=== PATIENT | male | born 1945 | race Caucasian/White ===

== ENCOUNTER → 2017-07-05 | Outpatient (CLI) | payer MEDICARE, BC ==
[~2017-07-05] MED LIST: AMBIEN; AMLODIPINE BESI25 GM; ASPI81CH; BUPR150ER; DHEA; ESCI20; FISH1000; FLUV80CR; LAMO100; LEVSOD50; Lisinopril2.5 MG; OLAN2.5; OLAN7.5; PRAZ2; PROP10; VALA500; ZOLP12.5
[2017-07-05 18:24] LABS: BASOPHILS ABSOLUTE AUTO 0.05 K/mm3 (0.00-0.23); BASOPHILS PERCENT AUTO 1 % (0-2); EOSINOPHILS ABSOLUTE AUTO 0.18 K/mm3 (0.00-0.68); EOSINOPHILS PERCENT AUTO 3 % (0-6); Hemoglobin 16.2 g/dL (13.5-17.5); IMMATURE GRAN ABSOLUTE AUTO 0.01 K/mm3 (0.00-0.10); IMMATURE GRAN PERCENT AUTO 0 % (0-1); LYMPHOCYTES ABSOLUTE AUTO 1.18 K/mm3 (0.84-5.20); LYMPHOCYTES PERCENT AUTO 21 % (21-46); MONOCYTES ABSOLUTE AUTO 0.73 K/mm3 (0.16-1.47); MONOCYTES PERCENT AUTO 13 % (4-13); Mean Corpuscular HGB 33.3 pg (26.0-34.0); Mean Corpuscular HGB Conc 34.5 g/dL (31.5-36.5); Mean Corpuscular Volume 97 fL (80-100); Mean Platelet Volume 10.4 fL (9.1-12.4); NEUTROPHILS ABSOLUTE AUTO 3.38 K/mm3 (1.96-9.15); NEUTROPHILS PERCENT AUTO 61 % (41-73); Platelet Count 199 K/mm3 (150-400); RDW Coefficient Variation 12.9 % (11.7-14.2); RDW Standard Deviation 46.1 fL (35.1-46.3); Red Blood Cell Count 4.87 M/mm3 (4.30-5.90); White Blood Cell Count 5.53 K/mm3 (4.00-11.30)
[2017-07-05 18:37] LABS: Anion Gap 7 mmol/L (6-16); Blood Urea Nitrogen 21 mg/dL (8-24); Bun/Creatinine Ratio 14.7 (12.0-20.0); CO2, Blood 30 mmol/L (21-32); Calcium, Blood 9.1 mg/dL (8.5-10.1); Chloride, Blood 100 mmol/L (98-108); Creatinine, Blood 1.43 mg/dL (0.60-1.20); Glomerular Filtration Rate 49 (60-); Glucose, Blood 100 mg/dL (70-99); Potassium, Blood 3.7 mmol/L (3.5-5.5); Sodium, Blood 137 mmol/L (136-145); Troponin I <0.017 ng/mL (0.000-0.040)
== END | disposition home or self-care (01) ==
LOC: LAB 18:20
PROVIDERS: Family Medicine
DX: R07.9 Chest pain, unspecified (principal)
CPT/HCPCS: 80048; 84484; 85025

== ENCOUNTER → 2017-10-06 | Outpatient (CLI) | payer MEDICARE, BC | END | disposition home or self-care (01) | LOC: LAB SHORT 07:25 → PLD 07:25 | DX: D09.8 Carcinoma in situ of other specified sites (principal) | CPT/HCPCS: 88305 ==

== ENCOUNTER 2019-01-10 10:58 | Day surgery (SDC) | payer MEDICARE, BC ==
[~2019-01-10] VITALS: Ht 177.8 cm; Wt 89.4 kg
[2019-01-10] MEDS ORDERED: PRIM250 (12:02)
[2019-01-10] MEDS ORDERED: XARELTO20 MG PO (12:02)
[2019-01-10] MEDS ORDERED: AMAN100 (12:03)
[2019-01-10] MEDS ORDERED: Prozac40 MG (12:04)
[2019-01-10] MEDS ORDERED: ARIP15 (12:04)
[2019-01-10] MEDS ORDERED: PROVIGIL PO (12:04)
[2019-01-10] MEDS ORDERED: Depo-Testos200 MG/ML (12:04)
== END 2019-01-10 13:15 | disposition home or self-care (01) ==
LOC: ORSCSDS 10:58
PROVIDERS: Anesthesiology
PROC: 3E0R33Z Introduction of Anti-inflammatory into Spinal Canal, Percutaneous Approach (ICD-10-PCS; principal; 2019-01-10 12:30)
DX: M96.1 Postlaminectomy syndrome, not elsewhere classified (principal); M54.16 Radiculopathy, lumbar region; I10 Essential (primary) hypertension; E78.00 Pure hypercholesterolemia, unspecified; G47.33 Obstructive sleep apnea (adult) (pediatric); F43.10 Post-traumatic stress disorder, unspecified; Z87.891 Personal history of nicotine dependence; Z79.82 Long term (current) use of aspirin; Z79.899 Other long term (current) drug therapy
CPT/HCPCS: J1040

== ENCOUNTER → 2019-05-16 | Outpatient (CLI) | payer MEDICARE, BC ==
[~2019-05-16] MED LIST changes: +AMAN100; -AMLODIPINE BESI25 GM; +ARIP15 PO; -ASPI81CH; +Amlodipine-Ben1 EAC3 PO; +Aspir 8181 MG PO; -BUPR150ER; +BUPROPION XL150 M1 PO; +CEFP200 PO; +DESONATE TOP; +Depo-Testos200 MG/ML IM; -FISH1000; +Fish Oil 10001000 MG PO; +Inderal40 MG PO; +LAMICTAL200 MG PO; -LAMO100; +LEVSOD25 PO; -LEVSOD50; +LEVSOD50 PO; +OMEP20ER PO; +PRIM250 PO; -PROP10; +PROVIGIL PO; +Prinivil10 MG PO; +Prozac20 MG PO; +TOPI50 PO; -VALA500; +VANCOCIN HCL125 MG PO; +Valtrex1000 MG PO; +XARELTO20 MG PO
== END | disposition home or self-care (01) ==
LOC: LAB SHORT 07:40 → LAB EV 07:40
DX: J40 Bronchitis, not specified as acute or chronic (principal)
CPT/HCPCS: 87081

== ENCOUNTER 2019-05-31 16:31 | Observation (INO) | payer MEDICARE, BC ==
[~2019-05-31] VITALS: Ht 172.7 cm; Wt 87.8 kg
[~2019-05-31 16:31] MED LIST changes: -CEFP200 PO; -DESONATE TOP; -LEVSOD25 PO; -LEVSOD50 PO; -OMEP20ER PO; -Prinivil10 MG PO; -TOPI50 PO; -VANCOCIN HCL125 MG PO
[2019-05-31] MEDS ORDERED: LEVSOD25 PO (17:04)
[2019-05-31] MEDS ORDERED: Prinivil10 MG PO (17:04)
[2019-05-31 17:29] LABS: BASOPHILS ABSOLUTE AUTO 0.04 K/mm3 (0.00-0.23); BASOPHILS PERCENT AUTO 0 % (0-2); EOSINOPHILS PERCENT AUTO 1 % (0-6); Hematocrit 40.4 % (37.0-53.0); Hemoglobin 13.7 g/dL (13.5-17.5); IMMATURE GRAN ABSOLUTE AUTO 0.09 K/mm3 (0.00-0.10); IMMATURE GRAN PERCENT AUTO 1 % (0-1); LYMPHOCYTES ABSOLUTE AUTO 0.47 K/mm3 (0.84-5.20); LYMPHOCYTES PERCENT AUTO 3 % (21-46); MONOCYTES ABSOLUTE AUTO 1.38 K/mm3 (0.16-1.47); MONOCYTES PERCENT AUTO 9 % (4-13); Mean Corpuscular HGB 32.5 pg (26.0-34.0); Mean Corpuscular HGB Conc 33.9 g/dL (31.5-36.5); Mean Corpuscular Volume 96 fL (80-100); Mean Platelet Volume 10.2 fL (9.1-12.4); NEUTROPHILS ABSOLUTE AUTO 12.51 K/mm3 (1.96-9.15); NEUTROPHILS PERCENT AUTO 85 % (41-73); Platelet Count 265 K/mm3 (150-400); RDW Coefficient Variation 13.1 % (11.7-14.2); RDW Standard Deviation 46.9 fL (35.1-46.3); Red Blood Cell Count 4.21 M/mm3 (4.30-5.90); White Blood Cell Count 14.69 K/mm3 (4.00-11.30)
[2019-05-31 17:34] LABS: Influenza A Negative (NEGATIVE); Influenza B Negative (NEGATIVE)
[2019-05-31 17:46] LABS: Source, Urine Catheter
[2019-05-31 17:47] LABS: International Normalized Ratio 1.04; Prothrombin Time Results 11.1 Sec (9.7-11.5)
[2019-05-31 17:53] LABS: Alanine Aminotransfer (ALT/SGP 40 U/L (12-78); Albumin, Blood 3.7 g/dL (3.4-5.0); Albumin/Globulin Ratio 1.1 (0.8-1.8); Alk Phos 111 U/L (50-136); Anion Gap 8 mmol/L (6-16); Aspartate Aminotrans (AST/SGOT 20 U/L (12-37); Bilirubin, Total 0.5 mg/dL (0.1-1.0); Blood Urea Nitrogen 20 mg/dL (8-24); Bun/Creatinine Ratio 19.4 (12.0-20.0); CO2, Blood 21 mmol/L (21-32); Calcium, Blood 8.9 mg/dL (8.5-10.1); Chloride, Blood 107 mmol/L (98-108); Creatinine, Blood 1.03 mg/dL (0.60-1.20); Globulin, Blood 3.4 g/dL (2.2-4.0); Glomerular Filtration Rate >60 (60-); Glucose, Blood 130 mg/dL (70-99); Potassium, Blood 3.6 mmol/L (3.5-5.5); Sodium, Blood 136 mmol/L (136-145); Total Protein, Blood 7.1 g/dL (6.4-8.2)
[2019-05-31 17:56] LABS: Bilirubin, Urine Neg (Neg); Blood, Urine Neg (Neg); Glucose Qualitative, Urine Neg (Neg); Ketones, Urine Neg (Neg); Leukocyte Esterase, Urine 1+ (Neg); Nitrite, Urine Neg (Neg); Protein, Urine Neg (Neg); Specific Gravity, Urine 1.015 (1.003-1.022); Urobilinogen, Urine NORM (Normal)
[2019-05-31 18:18] LABS: Appearance, Urine Hazy (Clear); Color, Urine Yellow (P-Yellow)
[2019-05-31 18:19] LABS: Red Blood Cells, Urine Not Seen /hpf (0-2)
[2019-05-31 18:20] LABS: Amorphous Light (0-Heavy); Bacteria Mod /hpf; Squamous Epithelial Cells Not Seen /hpf (Few)
[2019-05-31] MEDS ORDERED: DESONATE TOP (19:19)
[2019-05-31] MEDS ORDERED: TOPI50 PO (19:22)
[2019-05-31] MEDS ORDERED: OMEP20ER PO (19:23)
[2019-05-31] MEDS ORDERED: LEVSOD50 PO (19:24)
--- NOTE | 2019-05-31 22:41 | NUR ---
PATIENT IS A NEW ADMIT FROM THE ED. AXOX 4 AND SBA TRANSFER FROM [facility] TO BED. BEDREST WITH BATHROOM PRIVLEDGES SBA. DENIES PAIN, SOB, AND N/V. SPOUSE PRESENT ON ADMIT AND FOR TWO HOURS. ORIENTED TO ROOM AND CALL LIGHT SYSTEM. PATIENT WATCHING TV. REPORTS HE USES A CPAP AT NIGHT AND DID NOT BRING ONE IN. RT NOTIFIED AND WILL SET ONE UP. CALL LIGHT IN REACH. WILL CONTINUE TO MONITOR.
--- NOTE | 2019-05-31 22:46 | NUR ---
RT SET UP CPAP WITH CONTINUOUS PULSE OXIMETRY. ON ROOM AIR. NS STARTED AT 150mL/HR X ONE BAG. PATIENT REPORTS READY FOR SLEEP. CALL LIGHT IN REACH.
--- NOTE | 2019-05-31 23:08 | NUR ---
RESPIRATORY PANEL COLLECTED AND SENT TO LAB
--- NOTE | 2019-06-01 00:12 | NUR ---
ON CPAP STATING 93-95% ROOM AIR CONTINUOUS PULSE OXIMETRY.
[2019-06-01 00:47] LABS: Adenovirus Not Detected (NOT DETECT); Coronavirus 229E Not Detected (NOT DETECT); Coronavirus HKU1 Not Detected (NOT DETECT); Coronavirus NL63 Not Detected (NOT DETECT); Coronavirus OC43 Not Detected (NOT DETECT); Human Metapneumovirus Detected (NOT DETECT); Human Rhinovirus/Enterovirus Not Detected (NOT DETECT); Influenza A Not Detected (NOT DETECT); Influenza A/H1 Not Detected (NOT DETECT)
[2019-06-01 00:48] LABS: Bordetella pertussis Not Detected (NOT DETECT); Chlamydophila pneumoniae Not Detected (NOT DETECT); Influenza A/2009-H1 Not Detected (NOT DETECT); Influenza A/H3 Not Detected (NOT DETECT); Influenza B Not Detected (NOT DETECT); Mycoplasma pneumoniae Not Detected (NOT DETECT); Parainfluenza Virus 1 Not Detected (NOT DETECT); Parainfluenza Virus 2 Not Detected (NOT DETECT); Parainfluenza Virus 3 Not Detected (NOT DETECT); Parainfluenza Virus 4 Not Detected (NOT DETECT); Respiratory Syncytial Virus Not Detected (NOT DETECT)
--- NOTE | 2019-06-01 01:59 | NUR ---
TEMP 101.7 TYLENOL 650 MG GIVEN PER EMAR. ROOM TEMP DOWN AND BLANKETS PULLED BACK. NS INFUSING AT 150 mL/HR X ONE. BP 116/68. CPAP ON STATING 95% CONTINUOUS PULSE OXIMETRY.
--- NOTE | 2019-06-01 04:38 | NUR ---
SHIFT SUMMARY PATIENT WAS A NEW ADMIT FROM ED. AXOX 4 BEDREST WITH BATHROOM PRIVLEDGES. BILATERAL ESSENTIAL TREMORS OF HANDS. NEED TO HOLD MEDICATION CUP AND ASSIST WITH MEDICATION ADMINISTRATION. PIV REMAINS INTACT. NS INFUSED AT 150 mL/HR X ONE. BP 87/47 ON ADMIT AND BACK TO 116/68 WHEN REASSESSED. TEMP 99.7 TO 101.7 AND TYLENOL GIVEN PER EMAR AND REASSESSED AT 98.8. RT SET UP CPAP PER PATIENT REQUEST AFTER REPORTING HE USES ONE AT HOME. STATING 92-95% ON CONTINUOUS PULSE OXIMETRY AND ROOM AIR. RESPIRATORY PANEL COLLECTED AND SENT TO LAB. SPOUSE PRESENT FOR A FEW HOURS ON ADMIT. DENIES PAIN, SOB, AND N/V. CALL LIGHT IN REACH. BED IN LOWEST POSITION. WILL CONTINUE TO MONITOR UNTIL DAY SHIFT NURSE ASSUMES CARE.
[2019-06-01 06:39] LABS: BASOPHILS ABSOLUTE AUTO 0.04 K/mm3 (0.00-0.23); BASOPHILS PERCENT AUTO 0 % (0-2); EOSINOPHILS ABSOLUTE AUTO 0.05 K/mm3 (0.00-0.68); EOSINOPHILS PERCENT AUTO 0 % (0-6); Hematocrit 36.9 % (37.0-53.0); Hemoglobin 12.1 g/dL (13.5-17.5); IMMATURE GRAN ABSOLUTE AUTO 0.12 K/mm3 (0.00-0.10); IMMATURE GRAN PERCENT AUTO 1 % (0-1); LYMPHOCYTES ABSOLUTE AUTO 0.42 K/mm3 (0.84-5.20); LYMPHOCYTES PERCENT AUTO 3 % (21-46); MONOCYTES ABSOLUTE AUTO 1.49 K/mm3 (0.16-1.47); MONOCYTES PERCENT AUTO 11 % (4-13); Mean Corpuscular HGB 32.3 pg (26.0-34.0); Mean Corpuscular HGB Conc 32.8 g/dL (31.5-36.5); Mean Corpuscular Volume 98 fL (80-100); Mean Platelet Volume 10.1 fL (9.1-12.4); NEUTROPHILS ABSOLUTE AUTO 11.24 K/mm3 (1.96-9.15); NEUTROPHILS PERCENT AUTO 84 % (41-73); Platelet Count 209 K/mm3 (150-400); RDW Coefficient Variation 13.1 % (11.7-14.2); RDW Standard Deviation 48.2 fL (35.1-46.3); Red Blood Cell Count 3.75 M/mm3 (4.30-5.90); White Blood Cell Count 13.36 K/mm3 (4.00-11.30)
--- NOTE | 2019-06-01 15:54 | NUR ---
SHIFT SUMMARY PT IS A&O, PLEASANT AND CO-OP. AT BS MOST OF DAY. PT C/O NAUSEA RIGHT AFTER EATING BREAKFAST. 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 PT ALSO REPORTED THAT HE WAS HAVING DIARRHEA, WHICH JUST STARTED TODAY. DR ORTIZ NOTIFIED FOR ZOFRAN AND INFORMED OF DIARRHEA. STOOL CX ORDERED TO R/O C-DIFF. LAB CAME BACK POSITIVE FOR C-DIFF. DR ORTIZ ORDERED ABX AND RETURNED TO TO UPDATE PT ON RESULTS AND TX. PT HAD BEEN HOPING TO GO HOME IF NOT C-DIFF POSITIVE. PT UP TO SHOWER THIS AM, AFTER WORKING WITH P/T. REQUESTED TYLENOL FOR SOUZA; REPORTED IT RESOLVED. NO FURTHER C/O. CALL LT IN REACH.
--- NOTE | 2019-06-02 05:50 | NUR ---
SHIFT SUMMARY: 74 Y/O MALE RESTED COMFORTABLY ALL SHIFT; PT VOICED HIS UPPER ARMS HAVE TREMORS CONSTANTLY ALL TIME WITH ASSISTANCE REQUIRED FOR TAKING MEDICATIONS AND EATING FOODS; ALERT AND ORIENTED X 2, DENIES PAIN OR NAUSEA; BED ALARM APPLIED, BED LOW POSITION WITH CALL LIGHT AT SIDE.
--- NOTE | 2019-06-02 10:00 | NUR ---
patient told me a discription, because i asked him.
--- NOTE | 2019-06-02 11:07 | NUR ---
PER DR. ORTIZ WRITTEN PRESCRIPTIONS GIVEN TO . NO CHANGES TO THE ORDERS PLACED IN PK FOR THE DISCHARGE MEDS.
[2019-06-02] MEDS ORDERED: VANCOCIN HCL125 MG PO (11:13)
[2019-06-02] MEDS ORDERED: CEFP200 PO (11:13)
--- NOTE | 2019-06-02 14:18 | NUR ---
SHIFT SUMMARY PT AWAKE LYING HF LISTENING TO BOOK ON COMPUTER EARLY THIS AM. SBA TO BTHRM USING FWW WHILE HERE. PT WITH HX OF FALLS AT HOME, MUCH MORE STABLE USING FWW. PT REPORTED FEELING BETTER TODAY THAN YESTERDAY. STILL HAVING DIARRHEA D/T C-DIFF. NO C/O NAUSEA AFTER EATING, SINCE BREAKFAST YESTERDAY. HAD REPORTED NAUSEA AT HOME WELL, THE PAST COUPLE OF WEEKS, AFTER MEALS. RECENT FINDINGS OF 2 DIFFERENT MASSES BLOCKING COMMON BILE DUCTS. PT ASSISTED TO BTHRM NEEDED. OTHERWISE PT RESTED QUIETLY, SITTING UP IN BED LISTENING TO COMPUTER. DR ORTIZ IN THIS AM. D/C ORDERS PLACED. PT ASSISTED OUT VIA W/C AND AT SIDE. IV SITE D/C'D WNL'S. PT ABLE TO DRESS SELF. ASSISTED PT WITH BELONGINGS. D/C ORDERS DISCUSSED. VERBALIZED UNDERSTANDING.
== END 2019-06-02 12:17 | disposition home or self-care (01) ==
LOC: ER 16:31 → MEDS 19:36 → ER 19:36 → MEDS 20:54
PROVIDERS: Physician Assistant; ADMIT Hospitalist
DX: A41.9 Sepsis, unspecified organism (principal); G92 Toxic encephalopathy; R53.1 Weakness; I10 Essential (primary) hypertension; I25.10 Atherosclerotic heart disease of native coronary artery without angina pectoris; E03.9 Hypothyroidism, unspecified; G47.33 Obstructive sleep apnea (adult) (pediatric); G25.0 Essential tremor; I73.00 Raynaud's syndrome without gangrene; G89.29 Other chronic pain; F43.12 Post-traumatic stress disorder, chronic; I25.2 Old myocardial infarction; Z87.891 Personal history of nicotine dependence; Z86.711 Personal history of pulmonary embolism; Z79.01 Long term (current) use of anticoagulants; Z79.82 Long term (current) use of aspirin; Z79.899 Other long term (current) drug therapy; Z95.5 Presence of coronary angioplasty implant and graft
CPT/HCPCS: 0099U; 36415; 70450; 71046; 80053; 81001; 83605; 84145; 85025; 85610; 85730; 87015; 87040; 87045; 87046; 87086; 87205; 87324; 87493; 87804; 87899; 90686; 93005; 93010; 94660; 94762; 96361; 96365; 97116; 97161; 99285-25; A9270; G0008; G0378; J0696; J2405; J7030

== ENCOUNTER 2019-06-24 12:42 | Inpatient (IN) | payer MEDICARE, BC ==
[~2019-06-24] VITALS: Ht 172.7 cm; Wt 88.4 kg
[~2019-06-24 12:42] MED LIST changes: +CEFP200 PO; +DESONATE TOP; +LEVSOD25 PO; +LEVSOD50 PO; +OMEP20ER PO; +Prinivil10 MG PO; +TOPI50 PO; +VANCOCIN HCL125 MG PO
[2019-06-24 13:34] LABS: BASOPHILS ABSOLUTE AUTO 0.06 K/mm3 (0.00-0.23); BASOPHILS PERCENT AUTO 1 % (0-2); EOSINOPHILS ABSOLUTE AUTO 0.13 K/mm3 (0.00-0.68); EOSINOPHILS PERCENT AUTO 1 % (0-6); Hematocrit 40.4 % (37.0-53.0); Hemoglobin 13.8 g/dL (13.5-17.5); IMMATURE GRAN ABSOLUTE AUTO 0.06 K/mm3 (0.00-0.10); IMMATURE GRAN PERCENT AUTO 1 % (0-1); LYMPHOCYTES ABSOLUTE AUTO 0.41 K/mm3 (0.84-5.20); LYMPHOCYTES PERCENT AUTO 3 % (21-46); MONOCYTES PERCENT AUTO 13 % (4-13); Mean Corpuscular HGB 32.5 pg (26.0-34.0); Mean Corpuscular HGB Conc 34.2 g/dL (31.5-36.5); Mean Corpuscular Volume 95 fL (80-100); Mean Platelet Volume 10.9 fL (9.1-12.4); NEUTROPHILS ABSOLUTE AUTO 10.41 K/mm3 (1.96-9.15); NEUTROPHILS PERCENT AUTO 82 % (41-73); Platelet Count 260 K/mm3 (150-400); RDW Coefficient Variation 12.6 % (11.7-14.2); Red Blood Cell Count 4.25 M/mm3 (4.30-5.90); White Blood Cell Count 12.77 K/mm3 (4.00-11.30)
[2019-06-24 13:47] LABS: International Normalized Ratio 1.04; Prothrombin Time Results 11.1 Sec (9.7-11.5)
[2019-06-24 13:51] LABS: Alanine Aminotransfer (ALT/SGP 35 U/L (12-78); Albumin, Blood 3.9 g/dL (3.4-5.0); Albumin/Globulin Ratio 1.2 (0.8-1.8); Alk Phos 119 U/L (50-136); Anion Gap 7 mmol/L (6-16); Aspartate Aminotrans (AST/SGOT 18 U/L (12-37); Bilirubin, Total 0.4 mg/dL (0.1-1.0); Blood Urea Nitrogen 17 mg/dL (8-24); CO2, Blood 21 mmol/L (21-32); Chloride, Blood 107 mmol/L (98-108); Creatinine, Blood 0.95 mg/dL (0.60-1.20); Globulin, Blood 3.3 g/dL (2.2-4.0); Glomerular Filtration Rate >60 (60-); Glucose, Blood 92 mg/dL (70-99); Sodium, Blood 135 mmol/L (136-145); Total Protein, Blood 7.2 g/dL (6.4-8.2)
[2019-06-24] MEDS ORDERED: LAMO100 PO ×2 (14:10→14:11)
[2019-06-24] MEDS ORDERED: MODAFINIL100 MG PO (14:10)
[2019-06-24] MEDS ORDERED: Depo-Testos200 MG/ML IM (14:11)
[2019-06-24 14:52] LABS: Source, Urine Catheter
[2019-06-24 14:57] LABS: Bilirubin, Urine Neg (Neg); Blood, Urine 1+ (Neg); Glucose Qualitative, Urine Neg (Neg); Ketones, Urine 3+ (Neg); Leukocyte Esterase, Urine Neg (Neg); Nitrite, Urine Neg (Neg); Protein, Urine Neg (Neg); Specific Gravity, Urine 1.015 (1.003-1.022); Urobilinogen, Urine NORM (Normal)
[2019-06-24 15:22] LABS: Appearance, Urine Clear (Clear); Color, Urine Yellow (P-Yellow)
[2019-06-24 15:24] LABS: Bacteria Not Seen /hpf; Red Blood Cells, Urine 0-2 /hpf (0-2); Squamous Epithelial Cells Rare /hpf (Few); White Blood Cells, Urine 0-2 /hpf (0-5)
--- NOTE | 2019-06-24 18:05 | NUR ---
SHIFT SUMMARY PT ARRIVED TO ROOM FROM ER VIA GURNEY. HIS IS WITH HIM AT THE BEDSIDE. PT IS A/O X 4 AND HAS NO C/O PAIN BUT IS IN SIGNIFICANT DISCOMFORT FROM HIS NASAL CONGESTION. HE IS WARM TO THE TOUCH WITH A LOW GRADE FEVER AND THERE IS A MALODOR TO HIS BREATH BREATH. HIS REPORTS THAT THIS ALL STARTED THIS AFTERNOON AFTER THE PT HAD BEEN AT WORK FOR MOST OF THE DAY. PT DOES HAVE WHEEZING IN HIS UPPER LOBES BUT DENIES ANY SOB AND HAS NO S/S OF RESP DISTRESS. PT IS RESTING IN BED AWAITING DINNER. HE IS ABLE TO MAKE HIS NEEDS KNOW AND CAN AMBULATE TO THE TOILET WITH X 1 ASSIST. CALL LIGHT IN REACH.
[2019-06-25 05:38] LABS: Hematocrit 35.2 % (37.0-53.0); Hemoglobin 11.6 g/dL (13.5-17.5); Mean Corpuscular HGB 31.5 pg (26.0-34.0); Mean Corpuscular Volume 96 fL (80-100); Mean Platelet Volume 11.1 fL (9.1-12.4); Platelet Count 192 K/mm3 (150-400); RDW Coefficient Variation 12.6 % (11.7-14.2); RDW Standard Deviation 45.3 fL (35.1-46.3); Red Blood Cell Count 3.68 M/mm3 (4.30-5.90); White Blood Cell Count 8.93 K/mm3 (4.00-11.30)
--- NOTE | 2019-06-25 05:53 | NUR ---
74 YO MALE TO ICU 4 TRANSFER FROM [employer] ADMINISTRATOR. TRANSFER TO BED SLIDER SHEET. MONITOR PLACED SHOWING 100.S SINUS TACH. COOLING WRAPS PLACED SECONDARY TO TEMP 105.7 LUNGS SOUNDS DECREASED HOWEVER CLEAR DISTANT IN THE UPPER LOBES. ABDOMEN SOFT WITH FOUR BOWEL SOUNDS. ANWERS QUESTIONS APPROIATLY DR MALIK NOTIFIED OF DECREASED BLOOD PRESSURE ORDERS NOTED ATTEMPT TO NOTIFY SPOUSE OF TRANSFER. MESSAGE LEFT TO CALL BACK. CONTINUE TO MONITOR AND REPORT CHANGE IN PATIENT CONDITION..
[2019-06-25 05:56] LABS: Alanine Aminotransfer (ALT/SGP 22 U/L (12-78); Albumin, Blood 2.7 g/dL (3.4-5.0); Albumin/Globulin Ratio 0.9 (0.8-1.8); Alk Phos 78 U/L (50-136); Anion Gap 9 mmol/L (6-16); Aspartate Aminotrans (AST/SGOT 18 U/L (12-37); Bilirubin, Total 0.4 mg/dL (0.1-1.0); Blood Urea Nitrogen 20 mg/dL (8-24); Bun/Creatinine Ratio 16.5 (12.0-20.0); CO2, Blood 18 mmol/L (21-32); Calcium, Blood 7.9 mg/dL (8.5-10.1); Chloride, Blood 110 mmol/L (98-108); Creatinine, Blood 1.21 mg/dL (0.60-1.20); Globulin, Blood 2.9 g/dL (2.2-4.0); Glomerular Filtration Rate >60 (60-); Glucose, Blood 110 mg/dL (70-99); Potassium, Blood 3.6 mmol/L (3.5-5.5); Sodium, Blood 137 mmol/L (136-145); Total Protein, Blood 5.6 g/dL (6.4-8.2)
[2019-06-25 06:01] LABS: BAND PERCENT MAN 23 % (0-8); BASOPHILS ABSOLUTE MAN 0.08 K/mm3 (0.00-0.23); BASOPHILS PERCENT MAN 1 % (0-2); EOSINOPHILS PERCENT MAN 0 % (0-6); LYMPHOCYTES % ATYPICAL MANUAL 2 % (0-0); LYMPHOCYTES ABSOLUTE MAN 0.35 K/mm3 (0.84-5.20); LYMPHOCYTES PERCENT MAN 2 % (21-46); MONOCYTES PERCENT MAN 9 % (4-13); NEUTROPHILS ABSOLUTE MAN 7.67 K/mm3 (1.96-9.15); SEG NEUTROPHILS PERCENT MAN 63 % (41-73); TOTAL CELLS COUNTED 100
--- NOTE | 2019-06-25 06:12 | NUR ---
TRANSFER OF CARE REPORT GIVEN TO HATTIE FRANCO ICU. 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
--- NOTE | 2019-06-25 06:14 | NUR ---
SHIFT SUMMARY A/O, ABLE TO MAKE NEEDS KNOWN. COOPERATIVE WITH CARE. ANSWERS QUESTIONS APPROPRIATELY. CONTINUED TO BATTLED ELEVATED TEMPERATURE THROUGHOUT THE NIGHT; MEDICATED PER EMAR. IV FLUIDS INFUSED WITHOUT COMPLICATION. CONTINUED TO MONITOR THROUGHOUT SHIFT. DUE TO ELEVATED TEMPERATURES PATIENT WAS TRANSFERED TO ICU.
--- NOTE | 2019-06-25 06:40 | NUR ---
SHIFT SUMMARY RESTS QUIETLY WITH MONITOR SHOWING SINUS RHYTHM-SINUS TACH. HEART RATE 90'S-100'S. AROUSES TO VERBAL STIMULI. REMAINS IN COOLING WRAP SECONDARY TO TEMP 104.0. RESPIRATIONS REGULAR AND EASY ON ROOM AIR SPO2 GREATER THAN 90%. FAMILY NOTIFIED OF TRANSFER TO ICU AND UPDATE GIVEN. CONTINUE TO MONITOR AND REPORT CHANGE IN PATIENT CONDITION
[2019-06-25 09:11] LABS: Source, Urine Catheter
[2019-06-25 10:11] LABS: Bilirubin, Urine Neg (Neg); Blood, Urine 2+ (Neg); Glucose Qualitative, Urine Neg (Neg); Ketones, Urine 2+ (Neg); Leukocyte Esterase, Urine Neg (Neg); Nitrite, Urine Neg (Neg); Protein, Urine 2+ (Neg); Specific Gravity, Urine 1.015 (1.003-1.022); Urobilinogen, Urine NORM (Normal)
[2019-06-25 10:19] LABS: Appearance, Urine Clear (Clear); Bacteria Not Seen /hpf; Color, Urine Yellow (P-Yellow); Red Blood Cells, Urine 0-2 /hpf (0-2); Squamous Epithelial Cells Rare /hpf (Few); White Blood Cells, Urine Not Seen /hpf (0-5)
--- NOTE | 2019-06-25 12:28 | NUR ---
ASSUMED CARE/START OF SHIFT EVENTS RECEIVED REPORT FROM HATTIE FRANCO. PT WAS ASLEEP WITH TEMP OF ~103 AND MAP < 65 WITH LR BOLUS INFUSING. PT HAD EXTERNAL COOLING WRAPS. PT IN SINUS TACH 90-130s. PT ALREADY RECEIVED TYLENOL. MORNING CONTINUED, PT BEGAN SHIVERING IMMENSELY. TORADOL WAS GIVEN - WHICH HELPED WITH BACK/ABDOMEN/JOINT PAIN AND SHIVERING. TEMP RIDDLE INSERTED AT 0845, AND RECTAL TUBE WAS INSERTED AT 0940 DUE TO HAVING DIARRHEA AND REQUIRING BEING PLACED ON THE BED MULTIPLE TIMES AND SOMETIMES BEING INCONTINENT, NOT BEING ABLE TO WAIT FOR BEDPAN (PAST HISTORY OF CDIFF - SAMPLE SENT, UA SENT WELL) AND WANTING TO KEEP PT FROM HAVING TO GET UP. PT'S SPO2 PLETH HAS BEEN DIMINISHED, BUT CONSISTENT ON THE EARLOBE SHOWING LOW TO MID 90'S %. LATER ON AROUND 1015 THE COOLING WRAPS WAS TURNED OFF BECAUSE THE TEMPERATURE HAD DECREASED TO 98.8, BUT I LEFT THEM ON THE PT JUST IN CASE. HE HAD A BLANKET ON HIM OVER THE COOLING WRAPS. WHEN HE WAS EATING A SNACK, HE WAS SHAKING A LOT, AND SHIVERING TREMENDOUSLY HIS TEMP STARTED TO INCREASE - WE TOOK THE FOOD FROM HIM AND TURNED BACK ON THE EXTERNAL COOLING WRAPS. WE GAVE 25MCG OF FENTANYL, HIS PUT IN HEADPHONES AND TURNED ON SOME "ASMR", ALONG WITH GETTING HIM A LITTLE MORE COMFORTABLE IN BED SO HE COULD SLEEP. WHEN HES ASLEEP HE DOESN'T SHIVER. THESE INTERVENTIONS SEEM TO BE HELPING BECAUSE HIS TEMP (WHICH CAME BACK UP TO ~102) IS STEADLY COMING BACK DOWN AND IS IN THE 99.0-99.9 RANGE. DURING THE SHIVERING/ANXIETY HIS HR SHOOTS UP TO 140'S; BUT AT BASELINE ASLEEP OR AWAKE AND CALM/NOT SHIVERING HIS HR 98-108. BLOOD PRESSURE IS LABILE - BUT FLUID RESPONSIVE. ONE BP WAS ~100/53 WITH MAP OF ~55; AND THEN 90 SOMETHING/70 SOMETHING WITH A MAP OF 80 SOMETHING. PULSE PRESSURE IS VARIABLE. CURRENTLY RESTING IN BED STABLE, TEMPERATURE DECREASING, COOLING WRAPS ON, BP STABLE, FLUIDS RUNNING AT 125ML/HR, HR IN THE 100-105 RANGE, AND SATS WITH A DECENT PLETH IN THE 93-95% WITH PRN 1L NC.
[2019-06-25 15:26] LABS: Adenovirus Not Detected (NOT DETECT); Bordetella pertussis Not Detected (NOT DETECT); Chlamydophila pneumoniae Not Detected (NOT DETECT); Coronavirus 229E Not Detected (NOT DETECT); Coronavirus HKU1 Not Detected (NOT DETECT); Coronavirus NL63 Not Detected (NOT DETECT); Coronavirus OC43 Not Detected (NOT DETECT); Human Metapneumovirus Not Detected (NOT DETECT); Human Rhinovirus/Enterovirus Not Detected (NOT DETECT); Influenza A Not Detected (NOT DETECT); Influenza A/2009-H1 Not Detected (NOT DETECT); Influenza A/H1 Not Detected (NOT DETECT); Influenza A/H3 Not Detected (NOT DETECT); Influenza B Not Detected (NOT DETECT); Mycoplasma pneumoniae Not Detected (NOT DETECT); Parainfluenza Virus 1 Not Detected (NOT DETECT); Parainfluenza Virus 2 Not Detected (NOT DETECT); Parainfluenza Virus 3 Not Detected (NOT DETECT); Parainfluenza Virus 4 Not Detected (NOT DETECT); Respiratory Syncytial Virus Not Detected (NOT DETECT)
--- NOTE | 2019-06-25 16:14 | NUR ---
UPDATE PT WHEN AWAKE SHIVERS A LOT AND HAS PRETTY SEVERE TREMORS. TEMPERATURE INCREASES. THE EXTERNAL COOLING WRAPS WERE REMOVED DUE TO TEMPERATURE BEING 98-99 AND BECAUSE SATURATED IN FECES. AFTER BED BATH PT WAS WARMING UP BACK TO 100-101; SO I PLACED ICE PACKS THROUGHOUT BODY; HE IS CURRENTLY IN ~100.0. WHEN ASLEEP PT'S TEMP IS MORE STABLE AND DOES NOT INCREASE DUE TO NOT SHIVERING. MAIN ISSUE CURRENTLY IS BP. AFTER FLUID BOLUSES, HE DROPS AGAIN AND AGAIN. SO I PLACED CALL TO DR. RICARDO AND WE GOT 2.5MG MIDODRINE TID WITH A DOSE NOW TO GIVE.
--- NOTE | 2019-06-25 18:37 | NUR ---
SHIFT SUMMARY PT HAS REMAINED ALERT AND ORIENTED ALL DAY, AND MAKING ADEQUATE URINE OUTPUT ( 1060ML). SKIN COLOR HAS IMPROVED, HE LOOKS LESS DUSKY, AND PALE. HE STATES HE FEELS BETTER. ALTHOUGH BP HAS REMAINED AN ISSUE AFTER FLUID BOLUSES HE RESPONDS WELL IN THE SHORT TERM BUT CONTINUES TO DROP HIS MAP BELOW < 65. MIDODRINE 2.5MG WAS STARTED PER DR RICARDO WITH NO RESULTS. DR LAUGHLIN WAS CONSULTED AT THE END OF SHIFT AND ALBUMIN MAY BE ORDERED ON MEDICAL CLERK. TEMP HAS IMPROVED ENDING THE SHIFT AT 98-99.0, FROM THE START OF SHIFT AT 102-103.0. EXTERNAL COOLING HAS BEEN REMOVED (SEE PREVIOUS NOTE), AND ICE PACKS HAVE BEEN USED AND WORKING WELL; SPECIALLY WHEN HE IS ASLEEP AND NOT SHIVERING. EVEN AWAKE AT END OF SHIFT HE HAS STOPPED SHIVERING. RECTAL TUBE IS LEAKY, WILL REPORT TO MEDICAL CLERK - MAY NEED ANOTHER TUBE. HE HANDS AND FEET REMAIN COOL, BUT HE DOES HAVE RAUNAD'S, WITH A CAP REFIL >3s BUT HAS PALPABLE PULSES. BED LOW AND LOCKED. HE HAS HAD 5L OF IVF INTAKE. BUT NO SIGNS OF FLUID OVERLOAD - LUNGS ARE CLEAR BUT DIMINISHED. HE STILL HAS WATERY BROWN/GREEN DIARRHEA - CDIFF POSITIVE IN THE LAST 30 DAYS.
--- NOTE | 2019-06-25 19:45 | NUR ---
ASSUME CARE: BEDSIDE REPORT RECIEVED FROM OFFGOING HATTIE COELHO . MONITOR INTACT SHOWING SINUS RHYTHM/SINUS TACH WITH 1ST DEGREE BLOCK. HEART RATE 90'S-100'S. LUNG SOUNDS COARSE DECREASED IN THE BASES RESPIRATIONS REGULAR AND EASY ON ROOM AIR SPO2 GREATER THAN 90%. ABDOMEN SOFT WITH BOWEL SOUNDS FOUR QUADS. RIDDLE PATENT DRAINING CLEAR [place]O URINE. RECTAL TUBE INTACT WITH GREENISH BROWN LIQUID RETURN OCC LEAK AROUND TUBE. COMPLETE BED CHANGE AND PARTIAL BATH AT THIS TIME. EXTREMITIES ELEVATED ON PILLOWS REQUEST LATE DINNER TRAY TOLERATES SANDWITCH AND PUDDING WITH SODA. TREMORS NOTED ASSISTS WITH REPOSITIONING. EXTREMITIES COOL DRY NO EDEMA NOTED. CONTINUE TO MONITOR AND REPORT CHANGE IN PATINET CONDITION
--- NOTE | 2019-06-25 22:15 | NUR ---
HOSPITALIST DR GARCIA NOTIFIED PT REQUEST OF MEDS HE JAXSONY TAKES AT HOME AND HAS NOT RECIEVED HERE. ORDERS NOTED AND PT INFORMED THAT REQUESTED MEDS WOULD BE STARTED IN AM CONTINUE TO MONITOR AND REPORT CHANGE IN PATIENT CONDITION.
[2019-06-26 03:46] LABS: BASOPHILS ABSOLUTE AUTO 0.07 K/mm3 (0.00-0.23); BASOPHILS PERCENT AUTO 1 % (0-2); Hematocrit 35.1 % (37.0-53.0); Hemoglobin 11.6 g/dL (13.5-17.5); LYMPHOCYTES ABSOLUTE AUTO 0.49 K/mm3 (0.84-5.20); LYMPHOCYTES PERCENT AUTO 5 % (21-46); MONOCYTES ABSOLUTE AUTO 0.96 K/mm3 (0.16-1.47); MONOCYTES PERCENT AUTO 9 % (4-13); Mean Corpuscular HGB 31.6 pg (26.0-34.0); Mean Corpuscular Volume 96 fL (80-100); Mean Platelet Volume 10.7 fL (9.1-12.4); Platelet Count 174 K/mm3 (150-400); RDW Coefficient Variation 12.8 % (11.7-14.2); Red Blood Cell Count 3.67 M/mm3 (4.30-5.90); White Blood Cell Count 10.39 K/mm3 (4.00-11.30)
[2019-06-26 03:47] LABS: EOSINOPHILS ABSOLUTE AUTO 0.41 K/mm3 (0.00-0.68); EOSINOPHILS PERCENT AUTO 4 % (0-6); IMMATURE GRAN ABSOLUTE AUTO 0.11 K/mm3 (0.00-0.10); IMMATURE GRAN PERCENT AUTO 1 % (0-1); NEUTROPHILS ABSOLUTE AUTO 8.35 K/mm3 (1.96-9.15); NEUTROPHILS PERCENT AUTO 80 % (41-73)
[2019-06-26 04:06] LABS: Alanine Aminotransfer (ALT/SGP 25 U/L (12-78); Albumin, Blood 2.3 g/dL (3.4-5.0); Albumin/Globulin Ratio 0.8 (0.8-1.8); Alk Phos 64 U/L (50-136); Anion Gap 5 mmol/L (6-16); Aspartate Aminotrans (AST/SGOT 29 U/L (12-37); Bilirubin, Total 0.4 mg/dL (0.1-1.0); Blood Urea Nitrogen 13 mg/dL (8-24); CO2, Blood 23 mmol/L (21-32); Chloride, Blood 112 mmol/L (98-108); Creatinine, Blood 0.93 mg/dL (0.60-1.20); Globulin, Blood 2.9 g/dL (2.2-4.0); Glomerular Filtration Rate >60 (60-); Glucose, Blood 94 mg/dL (70-99); Magnesium, Blood 1.6 mg/dL (1.6-2.4); Sodium, Blood 140 mmol/L (136-145); Total Protein, Blood 5.2 g/dL (6.4-8.2)
[2019-06-26 05:12] LABS: BAND PERCENT MAN 27 % (0-8); BASOPHILS PERCENT MAN 0 % (0-2); EOSINOPHILS ABSOLUTE MAN 0.41 K/mm3 (0.00-0.68); EOSINOPHILS PERCENT MAN 4 % (0-6); LYMPHOCYTES ABSOLUTE MAN 0.51 K/mm3 (0.84-5.20); LYMPHOCYTES PERCENT MAN 5 % (21-46); METAMYELOCYTE PERCENT MAN 2 % (0-0); MONOCYTES ABSOLUTE MAN 0.41 K/mm3 (0.16-1.47); MONOCYTES PERCENT MAN 4 % (4-13); NEUTROPHILS ABSOLUTE MAN 8.83 K/mm3 (1.96-9.15); SEG NEUTROPHILS PERCENT MAN 58 % (41-73); TOTAL CELLS COUNTED 100
--- NOTE | 2019-06-26 05:24 | NUR ---
SHIFT SUMMARY: MONITOR INTACT SHOWING SINUS RHYTHM/SINUS TACH HEART RATE 90'S-100'S. REMAINS ON AIR VO 50L@ 65% SPO2 87-95% DESATURATES WITH ANY ACTIVITY 5-10MINUTES TO RECOVER WITH ENCOUREMENT TO DEEP BREATHE. ABDOMEN SOFT WITH BOWEL SOUNDS FOUR QUADS. USES URINAL WITH OCC INCONTINET EPISODES. VOIDS [place] URINE. ATTENDS IN PLACE. K PAD TO BACK FOR BACK PAIN MEDICATED WITH FENTANYL 50MCGS SINCE 0100. ASSISTS WITH REPOSITIONING. CONTINUE TO MONITOR AND REPORT CHANGE IN PATIENT CONDITION
--- NOTE | 2019-06-26 06:39 | NUR ---
HIFT SUMMARY: RESTS QUIETLY WHEN UNDISTURBED. AT BEDSIDE, ATTENTIVE TO NEEDS AND CARES. MONITOR INTACT SHOWING SINUS RHYTHM/SINUS TACH WITH FIRST DEGREE BLOCK. HEART RATE 90'S-100'S. LUNG SOUNDS DISTANT WITH DECREASED SOUNDS IN THE BASES CLEAR IN THE UPPER LOBES. RESPIRATIONS REGULAR AND EASY.,ON ROOM AIR. SPO2 GREATER THAN 90% ABDOMEN SOFT WITH BOWEL SOUNDS FOUR QUADS. RECTAL TUBE IN PLACE WITH LIQUID BROWN/GREEN RETURN. RIDDLE PATENT DRAINING [place] URINE. ASSISTS WITH REPOSITIONING. REMAINS IN ISOLATION FOR C-DIFF. CONTINUE TO MONITOR AND REPORT CHANGE IN PATIENT CONDITION.
--- NOTE | 2019-06-26 08:00 | NUR ---
PT. AWAKE. A/O X3. OOB TO CHAIR FOR BRKFT WITH MIN ASSIST. TEMP 99'S. BP ADEQ. NO RESP DISTRESS. LUNGS CLEAR. RECTAL TUBE AND RIDDLE IN PLACE.
--- NOTE | 2019-06-26 10:20 | NUR ---
RECTAL TUBE AND RIDDLE HAVE BEEN DC'D. PT CONT OF STOOL AND VIKI USE OF BSC.
--- NOTE | 2019-06-26 13:33 | NUR ---
PT. REMAINS IN CHAIR AND VIKI WELL. HAS REMAINED CONTINENT OF BOWEL AND BLADDER SINCE TUBES REMOVED.
--- NOTE | 2019-06-26 17:52 | NUR ---
NO ACUTE CHG IN STATUS. WAS CHG'D TO MED TELE THIS MORNING. HAS BEEN OOB WITH MIN. ASSISSTANCE. TEMP AND BP REMIANED STABLE TODAY.
--- NOTE | 2019-06-26 20:29 | NUR ---
PT RESTING IN BED. DENIES PAIN, N/V, AND SOB. 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 PT IS INDEP TO BSC. HAVING LOOSE STOOL. PT IS TOLERATING FOOD AND WATER. NO SIGN OF DISTRESS. CALL LIGHT IN REACH.
[2019-06-27 03:35] LABS: BASOPHILS ABSOLUTE AUTO 0.04 K/mm3 (0.00-0.23); BASOPHILS PERCENT AUTO 0 % (0-2); EOSINOPHILS ABSOLUTE AUTO 0.57 K/mm3 (0.00-0.68); EOSINOPHILS PERCENT AUTO 5 % (0-6); Hematocrit 32.5 % (37.0-53.0); Hemoglobin 10.9 g/dL (13.5-17.5); IMMATURE GRAN ABSOLUTE AUTO 0.06 K/mm3 (0.00-0.10); IMMATURE GRAN PERCENT AUTO 1 % (0-1); LYMPHOCYTES ABSOLUTE AUTO 0.61 K/mm3 (0.84-5.20); LYMPHOCYTES PERCENT AUTO 6 % (21-46); MONOCYTES ABSOLUTE AUTO 0.98 K/mm3 (0.16-1.47); MONOCYTES PERCENT AUTO 9 % (4-13); Mean Corpuscular HGB 31.1 pg (26.0-34.0); Mean Corpuscular HGB Conc 33.5 g/dL (31.5-36.5); Mean Platelet Volume 10.3 fL (9.1-12.4); NEUTROPHILS PERCENT AUTO 79 % (41-73); Platelet Count 186 K/mm3 (150-400); White Blood Cell Count 10.66 K/mm3 (4.00-11.30)
[2019-06-27 03:37] LABS: Mean Corpuscular Volume 93 fL (80-100)
[2019-06-27 03:58] LABS: Magnesium, Blood 1.8 mg/dL (1.6-2.4)
[2019-06-27 03:59] LABS: Alanine Aminotransfer (ALT/SGP 30 U/L (12-78); Albumin, Blood 2.4 g/dL (3.4-5.0); Albumin/Globulin Ratio 0.8 (0.8-1.8); Alk Phos 63 U/L (50-136); Anion Gap 8 mmol/L (6-16); Aspartate Aminotrans (AST/SGOT 30 U/L (12-37); Bilirubin, Total 0.2 mg/dL (0.1-1.0); Blood Urea Nitrogen 7 mg/dL (8-24); Bun/Creatinine Ratio 8.2 (12.0-20.0); CO2, Blood 20 mmol/L (21-32); Calcium, Blood 8.1 mg/dL (8.5-10.1); Chloride, Blood 115 mmol/L (98-108); Creatinine, Blood 0.85 mg/dL (0.60-1.20); Glomerular Filtration Rate >60 (60-); Glucose, Blood 119 mg/dL (70-99); Potassium, Blood 3.3 mmol/L (3.5-5.5); Sodium, Blood 143 mmol/L (136-145); Total Protein, Blood 5.4 g/dL (6.4-8.2)
--- NOTE | 2019-06-27 05:45 | NUR ---
NO ACUTE CHANGES THIS SHIFT. PT HAS BEEN UP TO BSC INDEP. NO SIGN OF DISTRESS.
--- NOTE | 2019-06-27 09:16 | NUR ---
TRANSFER OF CARE REPORT GIVEN TO HATTIE GODINEZ. PT TRANSFERED TO ROOM 205 W/O TELEMETRY PER NEW ORDER. BELONGINGS GATHERED AND TRANSPORTED WITH PT.
--- NOTE | 2019-06-27 10:55 | NUR ---
PT ARRIVED TO FLOOR VIA WHEELCHAIR. PT UP INDEPENDENTLY FROM WHEELCHIAR TO BED. PT ORIENTED TO ROOM AND PRIVIDED FRESH WATER. PT PROVIDED WITH SUPPLIES TO SHOWER.
--- NOTE | 2019-06-27 18:01 | NUR ---
SHIFT SUMMARY PATIENT TRANSFER THIS AFTERNOON. PATIENT DENIES PAIN, NAUSEA, AND SHORTNESS OF BREATH. PATIENT SETTLED INTO ROOM. AT BEDSIDE. PATIENT UP INDEPENDENT IN ROOM. CALL LIGHT IN REACH.
[2019-06-28 05:26] LABS: BASOPHILS ABSOLUTE AUTO 0.04 K/mm3 (0.00-0.23); BASOPHILS PERCENT AUTO 1 % (0-2); EOSINOPHILS ABSOLUTE AUTO 0.45 K/mm3 (0.00-0.68); EOSINOPHILS PERCENT AUTO 8 % (0-6); Hemoglobin 10.9 g/dL (13.5-17.5); IMMATURE GRAN ABSOLUTE AUTO 0.04 K/mm3 (0.00-0.10); IMMATURE GRAN PERCENT AUTO 1 % (0-1); LYMPHOCYTES ABSOLUTE AUTO 0.69 K/mm3 (0.84-5.20); LYMPHOCYTES PERCENT AUTO 12 % (21-46); MONOCYTES ABSOLUTE AUTO 0.55 K/mm3 (0.16-1.47); MONOCYTES PERCENT AUTO 10 % (4-13); Mean Corpuscular HGB 30.8 pg (26.0-34.0); Mean Corpuscular Volume 93 fL (80-100); Mean Platelet Volume 10.3 fL (9.1-12.4); NEUTROPHILS ABSOLUTE AUTO 4.05 K/mm3 (1.96-9.15); NEUTROPHILS PERCENT AUTO 70 % (41-73); Platelet Count 229 K/mm3 (150-400); RDW Coefficient Variation 13.2 % (11.7-14.2); RDW Standard Deviation 45.2 fL (35.1-46.3); Red Blood Cell Count 3.54 M/mm3 (4.30-5.90); White Blood Cell Count 5.82 K/mm3 (4.00-11.30)
[2019-06-28 06:00] LABS: Alanine Aminotransfer (ALT/SGP 33 U/L (12-78); Albumin, Blood 2.7 g/dL (3.4-5.0); Albumin/Globulin Ratio 0.8 (0.8-1.8); Alk Phos 70 U/L (50-136); Anion Gap 7 mmol/L (6-16); Aspartate Aminotrans (AST/SGOT 25 U/L (12-37); Bilirubin, Total 0.3 mg/dL (0.1-1.0); Blood Urea Nitrogen 6 mg/dL (8-24); Bun/Creatinine Ratio 7.2 (12.0-20.0); CO2, Blood 20 mmol/L (21-32); Calcium, Blood 8.5 mg/dL (8.5-10.1); Chloride, Blood 114 mmol/L (98-108); Creatinine, Blood 0.84 mg/dL (0.60-1.20); Globulin, Blood 3.3 g/dL (2.2-4.0); Glomerular Filtration Rate >60 (60-); Glucose, Blood 104 mg/dL (70-99); Potassium, Blood 3.3 mmol/L (3.5-5.5); Sodium, Blood 141 mmol/L (136-145)
--- NOTE | 2019-06-28 06:26 | NUR ---
SHIFT SUMMARY PT IS A 74 Y/O MALE, ADMITTED FOR SEPSIS, SINUSITIS AND C-DIFF. HE IS A&O X 4, INDEPENDENT IN THE ROOM. NO COMPLAINTS OF PAIN, NAUSEA OR SOB. VITAL SIGNS STABLE. NO ACUTE CHANGES IN PT CONDITION NOTED. WILL CONTINUE TO MONITOR AND TREAT PER EMAR UNTIL HAND OFF TO DAY SHIFT RN.
--- NOTE | 2019-06-28 16:29 | NUR ---
SHIFT SUMMARY PATIENT DENIES PAIN, NAUSEA, AND SHORTNESS OF BREATH. PATIENT UP INDEPENDENT IN THE ROOM. PATIENT REPORTS STOOLS STILL LOOSE BUT LESS FREQUENT. ANTICIPATING DISCHARGE TOMORROW. CALL LIGHT IN REACH.
--- NOTE | 2019-06-29 05:50 | NUR ---
SHIFT SUMMARY PATIENT ALERT AND ORIENTED. SLEPT WELL MOST OF THE NIGHT AND HAD MINIMAL NEEDS. IV PATENT AND FLUSHED. BED IN LOWEST POSITION WITH WHEELS LOCKED. CALL LIGHT WITHIN REACH. REPORT GIVEN TO ONCSUKUMAR KUHN
[2019-06-29] MEDS ORDERED: CEFU500T30 PO (11:03)
[2019-06-29] MEDS ORDERED: CHOLP PO (11:04)
[2019-06-29] MEDS ORDERED: Vsl#3 Capsule1 EACH PO (11:05)
[2019-06-29] MEDS ORDERED: VANCOCIN HCL125 MG PO (11:06)
--- NOTE | 2019-06-29 12:38 | NUR ---
DISCHARGE DISCHARGE INSTRUCTIONS, MEDICATION LIST AD FOLLOW UP APPOINTMENT REVIEWED WITH PT. QUESTIONS/CONCERNS ANSWERED. PT VERBALLY INDICATED UNDERSTANDING OF ALL INSTRUCTIONS RECEIVED. NEW MEDS FAXED TO [facility] PER PT PREFERENCE. PT ESCORTED OUT VIA W/C
== END 2019-06-29 12:30 | disposition home or self-care (01) | DRG 871 ==
LOC: ER 12:42 → MEDS 14:46 → ICUE 14:46 → MEDS 17:32 → ICUE 06-25 05:47 → SURS 06-27 09:20 → MEDS 06-27 17:03 → ENPENDDIS 06-29 10:00 → MEDS 06-29 12:30
PROVIDERS: Internal Medicine; Physician Assistant; ADMIT Internal Medicine
DX: A41.9 Sepsis, unspecified organism (principal); G92 Toxic encephalopathy; I27.82 Chronic pulmonary embolism; A04.71 Enterocolitis due to Clostridium difficile, recurrent; E87.2 Acidosis; G47.33 Obstructive sleep apnea (adult) (pediatric); J32.0 Chronic maxillary sinusitis; J01.01 Acute recurrent maxillary sinusitis; D63.8 Anemia in other chronic diseases classified elsewhere; E87.6 Hypokalemia; G25.0 Essential tremor; F43.10 Post-traumatic stress disorder, unspecified; F31.9 Bipolar disorder, unspecified; I10 Essential (primary) hypertension; E03.9 Hypothyroidism, unspecified; E78.5 Hyperlipidemia, unspecified; I25.10 Atherosclerotic heart disease of native coronary artery without angina pectoris; Z87.891 Personal history of nicotine dependence; K86.89 Other specified diseases of pancreas
CPT/HCPCS: 0099U; 36415; 70486; 71046; 80053; 81001; 82947; 83605; 83735; 84145; 85025; 85610; 85730; 87040; 87086; 93005; 93010; 94660; 96361; 96365; 96375; 99285-25; A9270; A9270-GY; J0696; J1885; J3010; J3480; J7030; J7120

== ENCOUNTER 2019-11-05 07:05 | Day surgery (SDC) | payer MEDICARE, BC ==
[~2019-11-05] VITALS: Ht 177.8 cm; Wt 89.0 kg
[~2019-11-05 07:05] MED LIST changes: +CEFU500T30 PO; +CHOLP PO; +LAMO100 PO; +MODAFINIL100 MG PO; +Vsl#3 Capsule1 EACH PO
--- NOTE | 2019-11-05 09:53 | NUR ---
11/05/19 0953 Pasquale Rose PLEDGETS SOAKED IN 30 MLS EPI FOR PACKING.
--- NOTE | 2019-11-05 11:47 | NUR ---
11/05/19 Nori7 Annie Gu PT IS IN THE RECLINER WITH AT CHAIRSIDE. VSS. PT TOLERATING PO FLUIDS WELL AND DENIES NAUSEA. HEAD OF THE BED IS ELEVATED IN THE CHAIR WITH A PILLOW. DRESSING REMOVED FROM UNDER NOSE; NO DRAINAGE AT THIS TIME. PT COMPLAINED OF PAIN /; RN TREATING PAIN PER DR'S ORDERS.
== END 2019-11-05 12:13 | disposition home or self-care (01) ==
LOC: ORSCSDS 07:05
PROVIDERS: Otolaryngology
PROC: 8E09XBZ Computer Assisted Procedure of Head and Neck Region (ICD-10-PCS; principal; 2019-11-05 08:30)
PROC: 09DU4ZZ Extraction of Right Ethmoid Sinus, Percutaneous Endoscopic Approach (ICD-10-PCS; principal; 2019-11-05 08:30)
PROC: 09DV4ZZ Extraction of Left Ethmoid Sinus, Percutaneous Endoscopic Approach (ICD-10-PCS; principal; 2019-11-05 08:30)
DX: J32.8 Other chronic sinusitis (principal); I10 Essential (primary) hypertension; Z87.891 Personal history of nicotine dependence; G47.33 Obstructive sleep apnea (adult) (pediatric); E78.5 Hyperlipidemia, unspecified; E03.9 Hypothyroidism, unspecified; I25.10 Atherosclerotic heart disease of native coronary artery without angina pectoris; I73.00 Raynaud's syndrome without gangrene; Z79.899 Other long term (current) drug therapy; Z79.82 Long term (current) use of aspirin; Z79.01 Long term (current) use of anticoagulants
CPT/HCPCS: 87070; 88305; 88311; C2625; J0330; J1100; J2250; J2704; J3010; J7120

== ENCOUNTER → 2020-06-01 | Outpatient (CLI) | payer MEDICARE, BC ==
[~2020-06-01] MED LIST changes: +Crestor20 MG PO
== END | disposition home or self-care (01) ==
LOC: LAB SHORT 14:39 → LAB 14:39
DX: C44.222 Squamous cell carcinoma of skin of right ear and external auricular canal (principal); L82.1 Other seborrheic keratosis
CPT/HCPCS: 88305

== ENCOUNTER 2020-06-26 11:58 | Day surgery (SDC) | payer MEDICARE, BC ==
[~2020-06-26] VITALS: Ht 177.8 cm; Wt 90.1 kg
[~2020-06-26 11:58] MED LIST changes: -Crestor20 MG PO
[2020-06-26] MEDS ORDERED: Crestor20 MG PO (12:47)
== END 2020-06-26 15:03 | disposition home or self-care (01) ==
LOC: ORSCSDS 11:58
PROVIDERS: Internal Medicine Gastroenterology
PROC: 0DBP8ZX Excision of Rectum, Via Natural or Artificial Opening Endoscopic, Diagnostic (ICD-10-PCS; principal; 2020-06-26 13:15)
PROC: 0DBL8ZX Excision of Transverse Colon, Via Natural or Artificial Opening Endoscopic, Diagnostic (ICD-10-PCS; principal; 2020-06-26 13:15)
DX: Z12.11 Encounter for screening for malignant neoplasm of colon (principal); D12.3 Benign neoplasm of transverse colon; D12.8 Benign neoplasm of rectum; K57.30 Diverticulosis of large intestine without perforation or abscess without bleeding; K64.8 Other hemorrhoids; K63.89 Other specified diseases of intestine; I10 Essential (primary) hypertension; I25.10 Atherosclerotic heart disease of native coronary artery without angina pectoris; E78.5 Hyperlipidemia, unspecified; G47.33 Obstructive sleep apnea (adult) (pediatric); Z87.891 Personal history of nicotine dependence; Z79.01 Long term (current) use of anticoagulants; Z79.899 Other long term (current) drug therapy
CPT/HCPCS: 88305; J2704; J7120

== ENCOUNTER → 2021-08-04 | Outpatient (CLI) | payer MEDICARE, BC ==
[~2021-08-04] MED LIST changes: +CLON.5; +Crestor20 MG PO; +FISH OIL 1,2001 EAC7; +PSYSENPA; +UBID10; +ZALE10
== END | disposition home or self-care (01) ==
LOC: PLD 11:10 → LAB SHORT 11:10
DX: C44.719 Basal cell carcinoma of skin of left lower limb, including hip (principal)
CPT/HCPCS: 88305

== ENCOUNTER → 2022-01-19 | Outpatient (CLI) | payer MEDICARE, BC | END | disposition home or self-care (01) | LOC: LAB SHORT 11:17 | DX: L57.0 Actinic keratosis (principal) | CPT/HCPCS: 88305 ==

== ENCOUNTER 2022-04-10 09:25 | Emergency (ER) | payer MEDICARE, BC ==
[~2022-04-10] VITALS: Ht 177.8 cm; Wt 88.9 kg
== END 2022-04-10 10:32 | disposition home or self-care (01) ==
LOC: ER 09:25
DX: R04.0 Epistaxis (principal); Z91.041 Radiographic dye allergy status; Z79.899 Other long term (current) drug therapy; Z79.01 Long term (current) use of anticoagulants; Z86.711 Personal history of pulmonary embolism; Z87.891 Personal history of nicotine dependence
CPT/HCPCS: 99283

== ENCOUNTER 2022-04-16 07:19 | Emergency (ER) | payer MEDICARE, BC ==
[~2022-04-16] VITALS: Ht 177.8 cm; Wt 88.9 kg
[2022-04-16 09:54] LABS: BASOPHILS ABSOLUTE AUTO 0.05 K/mm3 (0.00-0.23); BASOPHILS PERCENT AUTO 1 % (0-2); EOSINOPHILS ABSOLUTE AUTO 0.11 K/mm3 (0.00-0.68); EOSINOPHILS PERCENT AUTO 2 % (0-6); Hematocrit 44.8 % (37.0-53.0); IMMATURE GRAN ABSOLUTE AUTO 0.01 K/mm3 (0.00-0.10); IMMATURE GRAN PERCENT AUTO 0 % (0-1); LYMPHOCYTES ABSOLUTE AUTO 0.77 K/mm3 (0.84-5.20); LYMPHOCYTES PERCENT AUTO 15 % (21-46); MONOCYTES ABSOLUTE AUTO 0.47 K/mm3 (0.16-1.47); MONOCYTES PERCENT AUTO 9 % (4-13); Mean Corpuscular HGB 31.7 pg (26.0-34.0); Mean Corpuscular HGB Conc 33.5 g/dL (31.5-36.5); Mean Corpuscular Volume 95 fL (80-100); Mean Platelet Volume 10.7 fL (9.1-12.4); NEUTROPHILS ABSOLUTE AUTO 3.82 K/mm3 (1.96-9.15); NEUTROPHILS PERCENT AUTO 73 % (41-73); Platelet Count 180 K/mm3 (150-400); RDW Coefficient Variation 13.2 % (11.7-14.2); RDW Standard Deviation 46.2 fL (35.1-46.3); Red Blood Cell Count 4.73 M/mm3 (4.30-5.90); White Blood Cell Count 5.23 K/mm3 (4.00-11.30)
== END 2022-04-16 10:23 | disposition home or self-care (01) ==
LOC: ER 07:19
PROVIDERS: Emergency Medicine
DX: R04.0 Epistaxis (principal); E03.9 Hypothyroidism, unspecified; I10 Essential (primary) hypertension; Z91.041 Radiographic dye allergy status; Z79.899 Other long term (current) drug therapy; Z79.890 Hormone replacement therapy; Z79.02 Long term (current) use of antithrombotics/antiplatelets; Z87.891 Personal history of nicotine dependence
CPT/HCPCS: 36415; 85025; A9270

== ENCOUNTER → 2022-10-24 | Outpatient (CLI) | payer MEDICARE, BC | END | disposition home or self-care (01) | LOC: LAB 10:13 → LAB SHORT 10:13 → PLD 10:13 | DX: D04.22 Carcinoma in situ of skin of left ear and external auricular canal (principal) | CPT/HCPCS: 88305 ==

== ENCOUNTER 2023-05-25 13:14 | Emergency (ER) | payer OTHER, MEDICARE, BC ==
[~2023-05-25] VITALS: Ht 177.8 cm; Wt 90.7 kg
[2023-05-25 14:46] VITALS: BP 109/68
[2023-05-26] MEDS ORDERED: AMLODIPINE-BEN1 EAC5 PO (12:31)
[2023-05-26] MEDS ORDERED: SUNOSI150 MG PO (12:33)
[2023-05-26] MEDS ORDERED: MYRBETRIQ25 MG PO (12:34)
[2023-05-26] MEDS ORDERED: PRAZOSIN HCL1 M2 PO (12:35)
== END 2023-05-25 14:48 | disposition home or self-care (01) ==
LOC: ER 13:14
DX: S00.31XA Abrasion of nose, initial encounter (principal); S00.511A Abrasion of lip, initial encounter; Z87.891 Personal history of nicotine dependence; I10 Essential (primary) hypertension; E03.9 Hypothyroidism, unspecified; F31.9 Bipolar disorder, unspecified; G47.33 Obstructive sleep apnea (adult) (pediatric); Z86.711 Personal history of pulmonary embolism; Z79.01 Long term (current) use of anticoagulants; Z79.899 Other long term (current) drug therapy; Z91.041 Radiographic dye allergy status; W01.198A Fall on same level from slipping, tripping and stumbling with subsequent striking against other object, initial encounter; Y93.02 Activity, running
CPT/HCPCS: 93005; 93010; 99283-25

== ENCOUNTER 2023-05-26 11:08 | Emergency (ER) | payer MEDICARE, BC ==
[~2023-05-26] VITALS: Ht 177.8 cm; Wt 90.7 kg
[2023-05-26 12:01] LABS: BASOPHILS ABSOLUTE AUTO 0.02 K/mm3 (0.00-0.23); BASOPHILS PERCENT AUTO 1 % (0-2); EOSINOPHILS ABSOLUTE AUTO 0.07 K/mm3 (0.00-0.68); EOSINOPHILS PERCENT AUTO 2 % (0-6); Hematocrit 42.7 % (37.0-53.0); IMMATURE GRAN ABSOLUTE AUTO 0.01 K/mm3 (0.00-0.10); IMMATURE GRAN PERCENT AUTO 0 % (0-1); LYMPHOCYTES ABSOLUTE AUTO 0.66 K/mm3 (0.84-5.20); LYMPHOCYTES PERCENT AUTO 16 % (21-46); MONOCYTES ABSOLUTE AUTO 0.77 K/mm3 (0.16-1.47); MONOCYTES PERCENT AUTO 19 % (4-13); Mean Corpuscular HGB 29.8 pg (26.0-34.0); Mean Corpuscular HGB Conc 32.8 g/dL (31.5-36.5); Mean Corpuscular Volume 91 fL (80-100); Mean Platelet Volume 11.3 fL (9.1-12.4); NEUTROPHILS ABSOLUTE AUTO 2.59 K/mm3 (1.96-9.15); NEUTROPHILS PERCENT AUTO 63 % (41-73); Platelet Count 152 K/mm3 (150-400); RDW Coefficient Variation 13.3 % (11.7-14.2); RDW Standard Deviation 44.3 fL (35.1-46.3); White Blood Cell Count 4.12 K/mm3 (4.00-11.30)
[2023-05-26] MEDS ORDERED: AMLODIPINE-BEN1 EAC5 PO (12:31)
[2023-05-26] MEDS ORDERED: SUNOSI150 MG PO (12:33)
[2023-05-26] MEDS ORDERED: MYRBETRIQ25 MG PO (12:34)
[2023-05-26] MEDS ORDERED: PRAZOSIN HCL1 M2 PO (12:35)
[2023-05-26 13:52] LABS: Magnesium, Blood 2.4 mg/dL (1.6-2.4)
[2023-05-26 13:53] LABS: Albumin, Blood 3.8 g/dL (3.4-5.0); Albumin/Globulin Ratio 1.2 (0.8-1.8); Bilirubin, Total 0.3 mg/dL (0.1-1.0); Bun/Creatinine Ratio 15.7 (12.0-20.0); Creatinine, Blood 1.21 mg/dL (0.60-1.20); Globulin, Blood 3.1 g/dL (2.2-4.0); Potassium, Blood 4.5 mmol/L (3.5-5.5); Total Protein, Blood 6.9 g/dL (6.4-8.2)
[2023-05-26 14:21] LABS: Source, Urine Clean Catch
[2023-05-26 14:27] LABS: Appearance, Urine Clear (Clear); Bilirubin, Urine Neg (Neg); Blood, Urine Neg (Neg); Color, Urine Yellow (P-Yellow); Glucose Qualitative, Urine Neg (Neg); Ketones, Urine Neg (Neg); Leukocyte Esterase, Urine Neg (Neg); Nitrite, Urine Neg (Neg); Protein, Urine 1+ (Neg); Urobilinogen, Urine NORM (Normal)
[2023-05-26 15:00] VITALS: BP 186/78
== END 2023-05-26 15:20 | disposition home or self-care (01) ==
LOC: ER 11:08
PROVIDERS: Emergency Medicine
DX: S09.90XD Unspecified injury of head, subsequent encounter (principal); R26.9 Unspecified abnormalities of gait and mobility; W18.30XD Fall on same level, unspecified, subsequent encounter; Z91.048 Other nonmedicinal substance allergy status; Z79.890 Hormone replacement therapy; Z79.899 Other long term (current) drug therapy; G47.33 Obstructive sleep apnea (adult) (pediatric); Z87.891 Personal history of nicotine dependence; Z86.711 Personal history of pulmonary embolism; Z79.01 Long term (current) use of anticoagulants
CPT/HCPCS: 51798; 70450; 72125; 80053; 83735; 85025; 93005; 93010; 99285-25

== ENCOUNTER → 2023-06-19 | Outpatient (CLI) | payer MEDICARE, BC ==
[~2023-06-19] MED LIST changes: +AMLODIPINE-BEN1 EAC5 PO; +MYRBETRIQ25 MG PO; +PRAZOSIN HCL1 M2 PO; +SUNOSI150 MG PO
== END ==
LOC: LAB 12:13 → LAB SHORT 12:13
DX: L57.0 Actinic keratosis (principal)
CPT/HCPCS: 88305

== ENCOUNTER → 2023-06-26 | Outpatient (CLI) | payer MEDICARE, BC | LOC: LAB 08:32 → LAB SHORT 08:32 | DX: C44.222 Squamous cell carcinoma of skin of right ear and external auricular canal (principal) | CPT/HCPCS: 88305 ==

== ENCOUNTER 2024-06-19 08:06 | Day surgery (SDC) | payer MEDICARE, BC ==
[~2024-06-19] VITALS: Ht 177.8 cm; Wt 90.1 kg
[~2024-06-19 08:06] MED LIST changes: +Lactated Ringer's 1,000 ML IV ONE; +propofoL 50 ML IV ONE
[2024-06-19] MEDS ORDERED: B-100 COMPLEX100 MG (08:38)
[2024-06-19] MEDS ORDERED: MELATONIN5 M1 (08:39)
[2024-06-19] MEDS ORDERED: VITAMIN D350 MC3 (08:39)
[2024-06-19] MEDS ORDERED: MODA200 (08:39)
[2024-06-19] MEDS ORDERED: DONEPEZIL HCL10 MG (08:39)
[2024-06-19] MEDS ORDERED: DOCU100 (08:40)
[2024-06-19] MEDS ORDERED: Kaopectate240 MG (08:40)
[2024-06-19] MEDS ORDERED: MIRALAX17 GM (08:40)
[2024-06-19] MEDS ORDERED: SIMETHICONE125 MG (08:40)
[2024-06-19] MEDS ORDERED: VALA500 (08:41)
[2024-06-19] MEDS ORDERED: ACET325 (08:41)
[2024-06-19] MEDS ORDERED: Lactated Ringer's 1,000 ML IV ONE (09:17)
[2024-06-19 10:48] VITALS: BP 126/75
== END 2024-06-19 10:40 | disposition home or self-care (01) ==
LOC: ORSCSDS 08:06
PROVIDERS: Internal Medicine Gastroenterology
PROC: 0DBL8ZX Excision of Transverse Colon, Via Natural or Artificial Opening Endoscopic, Diagnostic (ICD-10-PCS; principal; 2024-06-19 09:30)
PROC: 0DBM8ZX Excision of Descending Colon, Via Natural or Artificial Opening Endoscopic, Diagnostic (ICD-10-PCS; principal; 2024-06-19 09:30)
PROC: 0DBK8ZX Excision of Ascending Colon, Via Natural or Artificial Opening Endoscopic, Diagnostic (ICD-10-PCS; principal; 2024-06-19 09:30)
DX: Z12.11 Encounter for screening for malignant neoplasm of colon (principal); Z86.0100 Personal history of colon polyps, unspecified; D12.2 Benign neoplasm of ascending colon; D12.3 Benign neoplasm of transverse colon; D12.4 Benign neoplasm of descending colon; K63.89 Other specified diseases of intestine; K57.30 Diverticulosis of large intestine without perforation or abscess without bleeding; K64.8 Other hemorrhoids; I10 Essential (primary) hypertension; G47.33 Obstructive sleep apnea (adult) (pediatric); E78.5 Hyperlipidemia, unspecified; I25.10 Atherosclerotic heart disease of native coronary artery without angina pectoris; Z79.899 Other long term (current) drug therapy; Z79.01 Long term (current) use of anticoagulants
CPT/HCPCS: 88305; J2704; J7120

== ENCOUNTER → 2024-09-11 | Outpatient (CLI) | payer MEDICARE, BC ==
[~2024-09-11] MED LIST changes: +ACET325; +B-100 COMPLEX100 MG; +DOCU100; +DONEPEZIL HCL10 MG; +Kaopectate240 MG; -Lactated Ringer's 1,000 ML IV ONE; +MELATONIN5 M1; +MIRALAX17 GM; +MODA200; +SIMETHICONE125 MG; +VALA500; +VITAMIN D350 MC3; -propofoL 50 ML IV ONE
== END | disposition home or self-care (01) ==
LOC: LAB 16:14 → LAB SHORT 16:14
DX: L03.211 Cellulitis of face (principal)
CPT/HCPCS: 87070; 87205

== ENCOUNTER → 2025-02-09 | Outpatient (CLI) | payer MEDICARE, BC ==
[2025-02-09 19:38] LABS: Campylobacter Sp Not Detected (NOT DETECT); E. Coli O157 Not Detected (NOT DETECT); Enteroaggregative E. coli-EAEC Not Detected (NOT DETECT); Enteropathogenic E. coli-EPEC Not Detected (NOT DETECT); Enterotoxigenic E. coli-ETEC Not Detected (NOT DETECT); Salmonella Sp Not Detected (NOT DETECT); Shiga Toxin-prod E. coli-STEC Not Detected (NOT DETECT); Shigella/Enteroin E. coli-EIEC Not Detected (NOT DETECT); Vibrio Sp Not Detected (NOT DETECT)
== END ==
LOC: LAB 10:05 → LAB SHORT 10:05
DX: R19.7 Diarrhea, unspecified (principal)
CPT/HCPCS: 87507